=== PATIENT | female | born 1980 | race Caucasian/White ===

== ENCOUNTER 2017-12-17 23:49 | Emergency (ER) | payer MEDICAID ==
[~2017-12-17] VITALS: Ht 170.2 cm; Wt 122.7 kg
[~2017-12-17 23:49] MED LIST: ALPR1TAB2 PO; ARIP10TA15 PO; HALO2TAB PO; LAMO25TA4 PO; VENL150C2 PO
[2017-12-18] MEDS ORDERED: normal saline 1000ml 1,000 ML IV ONE (00:12)
[2017-12-18] MEDS ORDERED: normal saline 1000ML IV soln IVB ONE ×2 (00:15→00:25)
[2017-12-18 00:36] LABS: BASOPHILS # (AUTO) 0.1 X10'3 (0-0.2); BASOPHILS % (AUTO) 1.5 % (0-1); EOSINOPHILS # (AUTO) 0.1 X10'3 (0-0.9); EOSINOPHILS % (AUTO) 1.4 % (0-6); HEMATOCRIT 40.4 % (35.0-45.0); HEMOGLOBIN 13.5 g/dl (12.0-16.0); LYMPHOCYTES # (AUTO) 3.4 X10'3 (1.1-4.8); LYMPHOCYTES % (AUTO) 38.4 % (21-51); MEAN CORPUSCULAR HEMOGLOBIN 30.9 PG (27.0-31.0); MEAN CORPUSCULAR HGB CONC 33.5 % (33.0-36.5); MEAN CORPUSCULAR VOLUME 92.1 FL (78-98); MEAN PLATELET VOLUME 9.2 FL (7.4-10.4); MONOCYTES # (AUTO) 0.6 X10'3 (0-0.9); MONOCYTES % (AUTO) 6.5 % (2-12); NEUTROPHILS # (AUTO) 4.7 X10'3 (1.8-7.7); NEUTROPHILS % (AUTO) 52.2 % (42-75); PLATELET COUNT 205 X10'3 (140-440); RED BLOOD COUNT 4.38 X10'6 (4.20-5.60); RED CELL DISTRIBUTION WIDTH 12.8 % (11.5-14.5); WHITE BLOOD COUNT 8.9 X10'3 (4.5-11.0)
[2017-12-18] MEDS: magnesium 1gm/100ml D5W IVPB 100 ML IV SCH ×2 (00:36→01:15)
[2017-12-18 00:42] LABS: ALANINE AMINOTRANSFERASE 19 U/L (12-78); ALBUMIN 3.3 G/DL (3.4-5.0); ALBUMIN/GLOBULIN RATIO 0.8 (1.1-1.5); ALKALINE PHOSPHATASE 60 IU/L (46-116); ANION GAP 11 (8-16); ASPARTATE AMINO TRANSFERASE 13 U/L (10-37); BILIRUBIN,TOTAL 0.1 MG/DL (0.1-1.0); BLOOD UREA NITROGEN 11 MG/DL (7-18); BUN/CREATININE RATIO 11.7 (6.6-38.0); CALCIUM 8.9 MG/DL (8.5-10.1); CHLORIDE 107 MMOL/L (99-107); CREATININE 0.94 MG/DL (0.40-0.90); GLUCOSE 116 MG/DL (70-104); SODIUM 144 MMOL/L (135-145); TOTAL CARBON DIOXIDE 25.7 MMOL/L (24-32); TOTAL PROTEIN 7.3 G/DL (6.4-8.2); eGFR 67 ML/MIN
[2017-12-18 00:50] LABS: ETHANOL 0.234 GM/DL (0.0-0.010); MAGNESIUM 1.9 MG/DL (1.5-2.4)
[2017-12-18 00:54] LABS: CLARITY,URINE CLEAR (Clear); COLOR,URINE YELLOW (Yellow); GLUCOSE, URINE NEGATIVE (Neg); KETONES,URINE NEGATIVE (Neg); LEUKOCYTE ESTERASE ,URINE NEGATIVE (Neg); NITRITES, URINE NEGATIVE (Neg); OCCULT BLOOD,URINE NEGATIVE (Neg); PROTEIN,URINE NEGATIVE (Neg); UROBILINOGEN,URINE 0.2 E.U/dL (0.2-1.0)
[2017-12-18 00:59] LABS: UA COLLECTION TYPE CLN CATCH MIDSTREAM
[2017-12-18 01:06] LABS: URINE AMPHETAMINE SCREEN NEGATIVE (Neg); URINE BARBITUATE SCREEN NEGATIVE (Neg); URINE BENZODIAZEPINES SCREEN POSITIVE (Neg); URINE CANNABINOID SCREEN NEGATIVE (Neg); URINE COCAINE SCREEN NEGATIVE (Neg); URINE METHADONE SCREEN NEGATIVE (Neg); URINE OPIATE SCREEN NEGATIVE (Neg); URINE PHENCYCLIDINE SCREEN NEGATIVE (Neg)
[2017-12-18 01:12] LABS: ACETAMINOPHEN < 2.0 UG/ML (10-30)
[2017-12-18] MEDS ORDERED: magnesium oxide 400mg tablet PO ONE (04:40)
[2017-12-18] MEDS ORDERED: ARIP5TAB4 PO (11:08)
[2017-12-18] MEDS ORDERED: FURO-150 PO (11:08)
[2017-12-18] MEDS ORDERED: VARE1TAB22 PO (11:11)
[2017-12-18] MEDS ORDERED: LISI10TA4 PO (11:13)
[2017-12-18] MEDS: varenicline tartrate 0.5mg tablet PO SCH (20:37)
[2017-12-19] MEDS: aripiprazole 5mg tablet PO SCH (07:55)
[2017-12-19] MEDS: lisinopril 10 MG tablet PO SCH (07:56)
[2017-12-19] MEDS: venlafaxine XR 75mg capsule (Q24H) PO SCH (07:56)
[2017-12-19] MEDS: furosemide 20MG tablet PO SCH (07:56)
[2017-12-19] MEDS: varenicline tartrate 0.5mg tablet PO SCH ×2 (07:56→20:11)
[2017-12-20] MEDS: furosemide 20MG tablet PO SCH (08:50)
[2017-12-20] MEDS: venlafaxine XR 75mg capsule (Q24H) PO SCH (08:50)
[2017-12-20] MEDS: aripiprazole 5mg tablet PO SCH (08:50)
[2017-12-20] MEDS: lisinopril 10 MG tablet PO SCH (08:50)
[2017-12-20] MEDS: varenicline tartrate 0.5mg tablet PO SCH ×2 (08:51→19:55)
[2017-12-21 05:47] VITALS: BP 107/65
[2017-12-21] MEDS: aripiprazole 5mg tablet PO SCH (07:45)
[2017-12-21] MEDS: furosemide 20MG tablet PO SCH (07:45)
[2017-12-21] MEDS: lisinopril 10 MG tablet PO SCH (07:46)
[2017-12-21] MEDS: venlafaxine XR 75mg capsule (Q24H) PO SCH (07:46)
[2017-12-21] MEDS: varenicline tartrate 0.5mg tablet PO SCH (08:38)
== END 2017-12-21 12:45 ==
LOC: ER 23:49
DX: T42.4X2A Poisoning by benzodiazepines, intentional self-harm, initial encounter (principal); Z88.0 Allergy status to penicillin; Z79.899 Other long term (current) drug therapy; Y92.89 Other specified places as the place of occurrence of the external cause
CPT/HCPCS: 36415; 80053; 80305; 80320; 80329; 81003; 83735; 84443; 85025; 93005; 96365; 96366; 99285

== ENCOUNTER 2019-11-27 05:09 | Inpatient (IN) | payer MEDICAID ==
[~2019-11-27] VITALS: Ht 157.5 cm; Wt 119.0 kg
[~2019-11-27 05:09] MED LIST changes: -ARIP10TA15 PO; +ARIP5TAB14 PO; +FURO-150 PO; +LISI10TA4 PO; +VARE1TAB22 PO
[2019-11-27 05:56] LABS: URINE HCG NEGATIVE (NEG)
[2019-11-27 06:02] LABS: CLARITY,URINE CLEAR (Clear); COLOR,URINE STRAW (Yellow); GLUCOSE, URINE NEGATIVE (Neg); KETONES,URINE NEGATIVE (Neg); LEUKOCYTE ESTERASE ,URINE NEGATIVE (Neg); NITRITES, URINE NEGATIVE (Neg); OCCULT BLOOD,URINE NEGATIVE (Neg); PH,URINE 5.5 (4.8-8.0); PROTEIN,URINE NEGATIVE (Neg); UROBILINOGEN,URINE 0.2 E.U/dL (0.2-1.0)
[2019-11-27 06:05] LABS: URINE AMPHETAMINE SCREEN NEGATIVE (Neg); URINE BARBITUATE SCREEN NEGATIVE (Neg); URINE BENZODIAZEPINES SCREEN NEGATIVE (Neg); URINE CANNABINOID SCREEN POSITIVE (Neg); URINE COCAINE SCREEN NEGATIVE (Neg); URINE METHADONE SCREEN NEGATIVE (Neg); URINE OPIATE SCREEN NEGATIVE (Neg); URINE PHENCYCLIDINE SCREEN NEGATIVE (Neg)
[2019-11-27 06:05] LABS: BASOPHILS # (AUTO) 0.1 X10'3 (0-0.2); EOSINOPHILS # (AUTO) 0.1 X10'3 (0-0.9); EOSINOPHILS % (AUTO) 1.7 % (0-6); HEMATOCRIT 42.5 % (35.0-45.0); HEMOGLOBIN 14.2 g/dl (12.0-16.0); LYMPHOCYTES # (AUTO) 2.5 X10'3 (1.1-4.8); LYMPHOCYTES % (AUTO) 34.6 % (21-51); MEAN CORPUSCULAR HEMOGLOBIN 31.2 PG (27.0-31.0); MEAN CORPUSCULAR HGB CONC 33.5 g/dL (33.0-36.5); MEAN CORPUSCULAR VOLUME 93.1 FL (78-98); MEAN PLATELET VOLUME 8.4 FL (7.4-10.4); MONOCYTES # (AUTO) 0.6 X10'3 (0-0.9); MONOCYTES % (AUTO) 7.6 % (2-12); NEUTROPHILS % (AUTO) 55.1 % (42-75); PLATELET COUNT 238 X10'3 (140-440); RED BLOOD COUNT 4.57 X10'6 (4.20-5.60); RED CELL DISTRIBUTION WIDTH 15.1 % (11.5-14.5); WHITE BLOOD COUNT 7.3 X10'3 (4.5-11.0)
[2019-11-27 06:10] LABS: GLUCOSE 111 MG/DL (70-104); SODIUM 138 MMOL/L (135-145)
[2019-11-27 06:11] LABS: ALANINE AMINOTRANSFERASE 24 U/L (12-78); ALBUMIN 3.5 G/DL (3.4-5.0); ALBUMIN/GLOBULIN RATIO 0.9 (1.1-1.5); ALKALINE PHOSPHATASE 66 IU/L (46-116); ANION GAP 12 (8-16); ASPARTATE AMINO TRANSFERASE 14 U/L (10-37); BILIRUBIN,TOTAL 0.2 MG/DL (0.1-1.0); BLOOD UREA NITROGEN 13 MG/DL (7-18); CALCIUM 9.1 MG/DL (8.5-10.1); CHLORIDE 102 MMOL/L (99-107); CREATININE 0.93 MG/DL (0.40-0.90); POTASSIUM 4.1 MMOL/L (3.5-5.1); TOTAL CARBON DIOXIDE 24.4 MMOL/L (24-32); TOTAL PROTEIN 7.5 G/DL (6.4-8.2); eGFR 67 ML/MIN
[2019-11-27 06:11] LABS: UA COLLECTION TYPE CLN CATCH MIDSTREAM
--- NOTE | 2019-11-27 06:30 | NUR ---
PT IS SLEEPING
[2019-11-27] MEDS ORDERED: AMIO200T39 PO (06:35)
[2019-11-27] MEDS ORDERED: SPIR25TA5 PO (06:36)
[2019-11-27] MEDS ORDERED: LOSA25TA41 PO (06:37)
[2019-11-27] MEDS ORDERED: ATOR40TA71 PO (06:41)
--- NOTE | 2019-11-27 07:30 | NUR ---
PT IS SLEEPING
--- NOTE | 2019-11-27 08:00 | NUR ---
PACKET SENT TO [facility]
--- NOTE | 2019-11-27 08:30 | NUR ---
PT IS SLEEPING
--- NOTE | 2019-11-27 09:30 | NUR ---
PT IS SLEEPING
--- NOTE | 2019-11-27 10:16 | NUR ---
PT IS SLEEPING
--- NOTE | 2019-11-27 11:57 | NUR ---
PT IS AWAKE AND TAKING TO [facility]
--- NOTE | 2019-11-27 12:30 | NUR ---
pt is laying in bed
--- NOTE | 2019-11-27 13:30 | NUR ---
pt is resting. laying in her bed. no concerns at this time. pt has just been sleeping all day
--- NOTE | 2019-11-27 14:43 | NUR ---
pt is sleeping
--- NOTE | 2019-11-27 15:30 | NUR ---
pt is awake. laying in her bed
--- NOTE | 2019-11-27 16:30 | NUR ---
pt is back to sleep
--- NOTE | 2019-11-27 17:34 | NUR ---
laying in her bed
--- NOTE | 2019-11-27 18:50 | NUR ---
pt laying on her rgt side ,rr even and nonlabored,will cont to monitor.
--- NOTE | 2019-11-27 19:40 | NUR ---
pt up in bed eating her dinner ,no distress noted will cont to monitor.pt cooperative at this time.
--- NOTE | 2019-11-27 19:50 | NUR ---
spoke to ramon from [facility] ,pt will be evaluated by for either acceptance and decline.
--- NOTE | 2019-11-27 22:32 | NUR ---
spoke to nurse velasco from [facility],as per nurse she will discuss the case with the provider and call us if they needed any bld draws.
--- NOTE | 2019-11-27 22:39 | NUR ---
clarified with the pt whether she has chf and high bp problem as per pt she was diagnosed with chf 3 yrs ago,notified the nurse rod from [facility].
--- NOTE | 2019-11-27 23:30 | NUR ---
pt appears to be asleep
--- NOTE | 2019-11-28 00:26 | NUR ---
Breaking primary RN, pt. resting quietly in bed on right side, respirations WNL, no signs of distress.
--- NOTE | 2019-11-28 01:54 | NUR ---
pt has been rolling around a few times in her bed but hasn't opened her eyes. Currently on right side.
--- NOTE | 2019-11-28 03:56 | NUR ---
she got up and went to the BR independently
--- NOTE | 2019-11-28 05:17 | NUR ---
[facility] called to ask for an EKG and who the patient's utility technician is.
--- NOTE | 2019-11-28 05:49 | NUR ---
called [facility] and updated them with the information they requested, EKG is done, tech will fax it there.
--- NOTE | 2019-11-28 08:00 | NUR ---
PT ATE A FEW BITES OF BREAKFAST AND FELL BACK TO SLEEP
[2019-11-28] MEDS: amiodarone 200mg tablet PO SCH (09:11)
[2019-11-28] MEDS: furosemide 20MG tablet PO SCH (09:12)
[2019-11-28] MEDS: spironolactone 25 MG tablet PO SCH (09:12)
[2019-11-28] MEDS: venlafaxine XR 75mg capsule (Q24H) PO SCH (09:12)
[2019-11-28] MEDS: losartan 25mg tablet PO SCH (09:12)
[2019-11-28] MEDS: aripiprazole 5mg tablet PO SCH (09:12)
--- NOTE | 2019-11-28 12:15 | NUR ---
pt awake up to br and voided x1. back to bed lying down
--- NOTE | 2019-11-28 15:56 | NUR ---
PT UP TO BR AND VOIDED. PT BACK TO BED.
--- NOTE | 2019-11-28 19:00 | NUR ---
Pt resting quietly, respirations normal, no s/s of distress.
--- NOTE | 2019-11-28 20:13 | NUR ---
PTS COUSIN HAWA CALLED LOOKING TO SEE IF SHE WAS HERE A PATIENT. WE ASKED THE PT PERMISSION TO GIVE OUT THIS INFO AND SHE SAID IT WAS OK BUT THAT SHE DIDN'T WANT TO TALK TO ANYONE. HAWA WAS ADVISED THAT EBONI IS HERE A PATIENT AND SAFE. SHE WOULD LIKE US TO ASK THE PATIENT IF IT IS OK TO LET OTHER FAMILY MEMBERS KNOW. I TOLD HER WE WOULD ASK AND THEN CALL HER BACK. HAWA CAN BE REACHED AT [phone]
--- NOTE | 2019-11-28 20:43 | NUR ---
Pt up to restroom
--- NOTE | 2019-11-28 20:44 | NUR ---
Contacted Jazmine as requested and informed her that pt is allowing family to know where she is.
--- NOTE | 2019-11-29 00:55 | NUR ---
Pt resting quietly, respirations normal, no s/s of distress.
--- NOTE | 2019-11-29 02:36 | NUR ---
Pt resting quietly, respirations normal, no s/s of distress.
--- NOTE | 2019-11-29 04:00 | NUR ---
Pt resting quietly, respirations normal, no s/s of distress.
--- NOTE | 2019-11-29 06:30 | NUR ---
Pt lying on her right side. Respirations even and unlabored.
[2019-11-29] MEDS: aripiprazole 5mg tablet PO SCH (08:07)
[2019-11-29] MEDS: losartan 25mg tablet PO SCH (08:07)
[2019-11-29] MEDS: spironolactone 25 MG tablet PO SCH (08:07)
[2019-11-29] MEDS: amiodarone 200mg tablet PO SCH (08:07)
[2019-11-29] MEDS: furosemide 20MG tablet PO SCH (08:07)
[2019-11-29] MEDS: venlafaxine XR 75mg capsule (Q24H) PO SCH (08:08)
--- NOTE | 2019-11-29 08:30 | NUR ---
Pt woke up to eat her breakfast and take pills. She states she has 4 kids at home who are older and can care for themselves. She thinks they know where she is. Pt states she does not want to be here anymore.
--- NOTE | 2019-11-29 10:30 | NUR ---
Pt has been accepted at [facility]. They will notify me when their discharged is complete. Pt aware.
--- NOTE | 2019-11-29 12:30 | NUR ---
Admit Note Legal hold: 5150 Client on involuntary status for DTS Report received from nurse with use of [facility] Why are they here: Patient brought into ED by [facility] on a 5150 hold for suicidal ideation. Patient called 911 because she has been depressed over the last several days and had thoughts of hurting herself this evening. She has no plan on how she was hurt her self. History of same in the past with the last admission over a year ago. No homicidal ideation. No auditory or visual hallucinations. She does admit to drinking alcohol this evening. No physical complaints. Assessment What has happened this shift: Pt admitted from [facility]. She showered then ate in the group room with the other patients. Pt is quiet and did not offer more than "yes or no" answers during the admission process. She presents as dysthymic with a flat affect. Admit completed. S/I, H/I:denies A/VH: denies Sleep:none this shift ADL's:independent Group attendance:N/A Were meds taken: not since admit to the unit Any med S/E: none noted or reported Mental Status Exam Appearance: short obese woman with red and purple short hair dressed in green scrubs Eye contact:fair Behavior:quiet, evasive Speech:low tone normal rate and rhythm Mood:depressed Affect:flat Thought process:logical, linear, coherent Thought Content:answered questions wants to go home Cognition:A/Ox4 Insight:fair Judgment:fair Interventions PRN's used:N/A Therapeutic interventions:Admit process; therapeutic communication and active listening, encouraged to shower, q15min safety checks Restraints/seclusion/emergency medication:N/A Justification: Pt has a history of self injury behaviors and suicidal ideation she was placed on a 5150 for DTS. She is in need of medication stabilization to prevent recapitalizations.
[2019-11-29] MEDS ORDERED: loperamide 2mg capsule PO PRN (12:40)
[2019-11-29] MEDS ORDERED: mag hydrox/Alum hydrox/simeth 30ml oral suspension PO PRN (12:40)
[2019-11-29] MEDS ORDERED: magnesium hydroxide 30ml (MOM) UD suspension PO PRN (12:40)
[2019-11-29] MEDS ORDERED: acetaminophen 325mg tablet PO PRN ×2 (12:40)
[2019-11-29] MEDS ORDERED: LORazepam 1 MG tablet PO PRN (12:40)
[2019-11-29 19:58] VITALS: BP 123/69
[2019-11-29] MEDS: traZODone 50mg tablet PO PRN (20:48)
--- NOTE | 2019-11-30 00:15 | NUR ---
Progress note: Legal hold: 5150 Client on involuntary status for DTS Report received from nurse with use of [facility] Why are they here: Patient brought into ED by [facility] on a 5150 hold for suicidal ideation. Patient called 911 because she has been depressed over the last several days and had thoughts of hurting herself this evening. She has no plan on how she was hurt her self. History of same in the past with the last admission over a year ago. No homicidal ideation. No auditory or visual hallucinations. She does admit to drinking alcohol this evening. No physical complaints. Assessment What has happened this shift: Pt up briefly this shift in group room. Avoided interactions with staff or other pts. Isolated to room most of shift. Affect flat pt denies SI at this time or at admit. "I just wanted to hurt myself." Pt minimizing reason for admit. Denied depression "I'm just bored and miss my kids." Pt spent a lot of time lying prone on bed minimal cooperation with assessment. Pt took Prn Trazodone at [facility] went to sleep, sleeping at this time. S/I, H/I:denies A/VH: denies Sleep:asleep at this time ADL's:independent Group attendance:N/A Were meds taken: Prn Trazodone Any med S/E: none noted or reported Mental Status Exam Appearance: short obese woman with red and purple short hair dressed in green scrubs Eye contact: poor Behavior:quiet, evasive Speech:low tone normal rate and rhythm Mood:depressed Affect:flat Thought process:logical, linear, coherent Thought Content:answered questions wants to go home Cognition:A/Ox4 Insight:fair Judgment:fair Interventions PRN's used: Trazodone Therapeutic interventions:Admit process; therapeutic communication and active listening, encouraged to shower, q15min safety checks Restraints/seclusion/emergency medication:N/A Justification: Pt has a history of self injury behaviors and suicidal ideation she was placed on a 5150 for DTS. She is in need of medication stabilization to prevent recapitalizations.
[2019-11-30 07:36] LABS: CHOL/HDL RATIO 4.9 (0.00-4.99); CHOLESTEROL 262 MG/DL (0-200); HDL CHOLESTEROL 53 MG/DL (35-60); LDL CHOLESTEROL 177 MG/DL (50-100); TRIGLYCERIDES 156 MG/DL (20-135)
[2019-11-30 07:39] LABS: HEMOGLOBIN A1C 5.6 % (4.5-6.2)
[2019-11-30 07:47] VITALS: BP 113/79
[2019-11-30] MEDS: amiodarone 200mg tablet PO SCH (07:55)
[2019-11-30] MEDS: venlafaxine XR 75mg capsule (Q24H) PO SCH (07:56)
[2019-11-30] MEDS: spironolactone 25 MG tablet PO SCH (07:56)
[2019-11-30] MEDS: losartan 25mg tablet PO SCH (07:57)
[2019-11-30] MEDS: aripiprazole 5mg tablet PO SCH (07:58)
[2019-11-30] MEDS: furosemide 20MG tablet PO SCH (07:58)
--- NOTE | 2019-11-30 12:56 | NUR ---
Admit Note Legal hold: 5150 Client on involuntary status for DTS Report received from nurse with use of [facility] Why are they here: Patient brought into ED by [facility] on a 5150 hold for suicidal ideation. Patient called 911 because she has been depressed over the last several days and had thoughts of hurting herself this evening. She has no plan on how she was hurt her self. History of same in the past with the last admission over a year ago. No homicidal ideation. No auditory or visual hallucinations. She does admit to drinking alcohol this evening. No physical complaints. Assessment What has happened this shift: Pt slept until breakfast then joined the others to eat. Pt is socila during meals if someone else engages her. She was seen by the doctor and plans to return home and see Dr. Morton at [facility]. Pt denies SI/HI. She states she rarely drinks she was just lonely that night and went to a friends house to "socialize and hang out." No changes with medications today. S/I, H/I:denies A/VH: denies Sleep:none this shift ADL's:independent Group attendance yes Were Meds taken: not since admit to the unit Any med S/E: none noted or reported Mental Status Exam Appearance: short obese woman with red and purple short hair wearing personal clothes today Eye contact:fair Behavior: quiet, evasive Speech: low tone normal rate and rhythm Mood: depressed Affect: flat Thought process:logical, linear, coherent Thought Content:answered questions wants to go home Cognition: A/Ox4 Insight: fair Judgment: fair Interventions PRN's used: N/A Therapeutic interventions: 1:1 assessment, therapeutic communication and active listening, encouraged to shower, q15min safety checks Restraints/seclusion/emergency medication:N/A Justification: Pt has a history of self injury behaviors and suicidal ideation she was placed on a 5150 for DTS. She is in need of medication stabilization to prevent rehospitalization.
[2019-11-30 20:16] VITALS: BP 116/62
[2019-11-30] MEDS: traZODone 50mg tablet PO PRN (20:47)
--- NOTE | 2019-12-01 01:50 | NUR ---
Progress note: Legal hold: 5150 Client on involuntary status for DTS Report received from nurse with use of [facility] Why are they here: Patient brought into ED by [facility] on a 5150 hold for suicidal ideation. Patient called 911 because she has been depressed over the last several days and had thoughts of hurting herself this evening. She has no plan on how she was hurt her self. History of same in the past with the last admission over a year ago. No homicidal ideation. No auditory or visual hallucinations. She does admit to drinking alcohol this evening. No physical complaints. Assessment What has happened this shift: Pt up in group room having an animated conversation with another pt. They watched TV together till bedtime. Denied depression denies thoughts of self harm. Pt cooperative with care more talkative S/I, H/I:denies A/VH: denies Sleep:asleep at this time ADL's:independent Group attendance:N/A Were meds taken: Prn Trazodone Any med S/E: none noted or reported Mental Status Exam Appearance: short obese woman with red and purple short hair dressed in green scrubs Eye contact: poor Behavior:quiet, evasive Speech:low tone normal rate and rhythm Mood:depressed Affect:flat Thought process:logical, linear, coherent Thought Content:answered questions wants to go home Cognition:A/Ox4 Insight:fair Judgment:fair Interventions PRN's used: Trazodone Therapeutic interventions:Admit process; therapeutic communication and active listening, encouraged to shower, q15min safety checks Restraints/seclusion/emergency medication:N/A Justification: Pt has a history of self injury behaviors and suicidal ideation she was placed on a 5150 for DTS. She is in need of medication stabilization to prevent recapitalizations.
[2019-12-01 07:48] VITALS: BP 115/64
[2019-12-01] MEDS: venlafaxine XR 75mg capsule (Q24H) PO SCH (08:38)
[2019-12-01] MEDS: losartan 25mg tablet PO SCH (08:38)
[2019-12-01] MEDS: spironolactone 25 MG tablet PO SCH (08:38)
[2019-12-01] MEDS: aripiprazole 5mg tablet PO SCH (08:38)
[2019-12-01] MEDS: furosemide 20MG tablet PO SCH (08:38)
[2019-12-01] MEDS: amiodarone 200mg tablet PO SCH (08:38)
--- NOTE | 2019-12-01 10:00 | NUR ---
Group Therapy: Process Group This Clinicians goals for this process group were as follows: (1) Ask scaling questions about Patients current anxiety, depression, and irritability symptoms as a check-in. (2) Share psychoeducation about emotional escalation as it relates to stress and negative symptoms, Fight, flight, freeze. (2) Provide psychoeducation on the STOPP acronym: Stop, Take a Breath, Observe the situation, Put things into perspective, and, Practice what works. (3) Share psychoeducation on principles of mindfulness and emotional relaxation techniques that Patients may utilize to reduce the acuity of unwanted emotional escalation. (5) Process Clients thoughts and reflections on this topic within the group milieu. Patient identified experiencing the following levels of anxiety, depression, and anger/irritability while present in the group milieu. Anxiety: 1.5/10 Depression: 1.5/10 Anger/irritability: 1.5/10 Patient presented as open and cooperative within the group milieu. Patient presented in a white tank top, and nondescript pant bottoms. Patient's head was cleanly shaved on the sides with purple hair on top. Patient presented as verbally engaged and nonobtrusive within the group milieu. Patient reported that her levels were all 1.5/10 on anxiety, depression, and anger/irritability, noting that they would be at a 1/10, "If I weren't here." Patient was cooperative in sharing within the group milieu the physical sensations that she experienced when she had heightened anxiety symptoms, at one time noting, "It feels like someone is sitting on my chest." Rob Perea MA, [employer] Addendum: 12/01/19 at 1125 by Rob Perea Amended: Links added.
--- NOTE | 2019-12-01 13:25 | NUR ---
Nursing Progress Note Legal hold: 5150 Client on involuntary status for DTS Report received from DARIEN Taveras with use of [facility] Why are they here: Patient brought into ED by [facility] on a 5150 hold for suicidal ideation. Patient called 911 because she has been depressed over the last several days and had thoughts of hurting herself this evening. She has no plan on how she was hurt her self. History of same in the past with the last admission over a year ago. No homicidal ideation. No auditory or visual hallucinations. She does admit to drinking alcohol this evening. No physical complaints. Assessment What has happened this shift: Dr. Morton plans on increasing her Abilify and she will see him after she is discharged. Pt up most of the shift. She engages some with peers and attends groups. She still appears depressed with a flat affect. S/I, H/I:denies A/VH: denies Sleep:none this shift ADL's:independent Group attendance yes Were Meds taken: not since admit to the unit Any med S/E: none noted or reported Mental Status Exam Appearance: short obese woman with red and purple short hair she showered today and put on clean personal clothes Eye contact:fair Behavior: a little more socializing today with peers Speech: low tone normal rate and rhythm Mood: depressed Affect: flat Thought process:logical, linear, coherent Thought Content:answered questions wants to go home Cognition: A/Ox4 Insight: fair Judgment: fair Interventions PRN's used: N/A Therapeutic interventions: 1:1 assessment, therapeutic communication and active listening, encouraged to shower, q15min safety checks Restraints/seclusion/emergency medication:N/A Justification: Pt has a history of self injury behaviors and suicidal ideation she was placed on a 5150 for DTS. She is in need of medication stabilization to prevent rehospitalization.
[2019-12-02] MEDS ORDERED: TRAZ-251 PO (10:48)
[2019-12-02] MEDS ORDERED: ARIP10TA17 PO (10:48)
== END 2019-11-29 12:25 | disposition short-term general hospital (02) | DRG 751 ==
LOC: ER 05:10 → ADULT MH 11-29 10:05 → ER 11-29 12:25
PROVIDERS: ADMIT Psychiatry & Neurology Psychiatry; ATTEND Psychiatry & Neurology Psychiatry
DX: F33.2 Major depressive disorder, recurrent severe without psychotic features (principal); I50.9 Heart failure, unspecified; R45.851 Suicidal ideations; E66.01 Morbid (severe) obesity due to excess calories; F10.129 Alcohol abuse with intoxication, unspecified; F41.9 Anxiety disorder, unspecified; F60.3 Borderline personality disorder; F17.210 Nicotine dependence, cigarettes, uncomplicated; Z88.0 Allergy status to penicillin; Z79.899 Other long term (current) drug therapy; Z95.810 Presence of automatic (implantable) cardiac defibrillator; Z68.42 Body mass index [BMI] 45.0-49.9, adult
CPT/HCPCS: 36415; 80053; 80061; 80305; 80320; 81003; 81025; 83036; 84443; 85025; 87081; 93005; 99285

== ENCOUNTER 2020-08-07 17:16 | Emergency (ER) | payer MEDICAID ==
[~2020-08-07] VITALS: Ht 157.5 cm; Wt 113.9 kg
[~2020-08-07 17:16] MED LIST changes: -ALPR1TAB2 PO; +AMIO200T39 PO; +ARIP10TA17 PO; -ARIP5TAB14 PO; -HALO2TAB PO; -LAMO25TA4 PO; -LISI10TA4 PO; +LOSA25TA41 PO; +SPIR25TA5 PO; +TRAZ-251 PO; -VARE1TAB22 PO
[2020-08-07 18:25] VITALS: BP 102/46
[2020-08-07] MEDS ORDERED: ibuprofen tablet 400 MG TABLET PO ONE (18:35)
== END 2020-08-07 19:10 | disposition home or self-care (01) ==
LOC: ER 17:17
DX: S49.92XA Unspecified injury of left shoulder and upper arm, initial encounter (principal); I50.9 Heart failure, unspecified; F32.9 Major depressive disorder, single episode, unspecified; F12.90 Cannabis use, unspecified, uncomplicated; Z72.89 Other problems related to lifestyle; Z88.0 Allergy status to penicillin; Z79.899 Other long term (current) drug therapy; W18.39XA Other fall on same level, initial encounter; Y93.89 Activity, other specified; Y92.89 Other specified places as the place of occurrence of the external cause; Y99.8 Other external cause status
CPT/HCPCS: 73030; 99284